=== PATIENT | male | born 1960 | race Two or more races ===

== ENCOUNTER 2022-07-12 08:29 | Emergency (ER) | payer MEDICARE, SELFPAY ==
--- NOTE | 2022-07-12 | ECG_ITS ---
Test Reason : syncope Blood Pressure : / mmHG Vent. Rate : 078 BPM Atrial Rate : 078 BPM P-R Int : 162 ms QRS Dur : 088 ms QT Int : 384 ms P-R-T Axes : 036 001 022 degrees QTc Int : 437 ms Normal sinus rhythm Normal ECG No previous ECGs available Referred By: Aly Beckwith Electronically Signed By:LUCHO JACOBS
--- NOTE | ~2022-07-12 | CT_ITS ---
EXAMINATION: CT ANGIOGRAM OF THE CHEST WITH AND WITHOUT CONTRAST (CT PULMONARY ANGIOGRAM FOR PE) CLINICAL INFORMATION: Syncope, rule out pulmonary embolism. COMPARISON: None TECHNIQUE: Prior to contrast administration, noncontrast localization images were obtained. Subsequently, multidetector volumetric imaging was performed from the thoracic inlet to below the diaphragms following the administration of 80 mL Omnipaque 350 intravenous contrast. No contrast reaction reported Sagittal, coronal, and MIP oblique sagittal reformatted images were obtained on the CT workstation, uploaded to PACS, and reviewed. This CT examination was performed using dose optimization techniques as appropriate, variously including the following: *Automated exposure control *Adjustment of mA and/or kV according to patient size (this includes techniques or standardized protocols for targeted exams where dose is matched to indication/reason for exam; i.e. extremities or head) *Use of iterative reconstruction technique Total exam dose-length product 332 mGy-cm FINDINGS: QUALITY OF STUDY/CONTRAST BOLUS: Satisfactory. PULMONARY ARTERIES: No central or segmental pulmonary emboli. THORACIC AORTA: No aneurysm or dissection. LUNGS/PLEURA/AIRWAYS: No focal consolidation, nodules or masses. MEDIASTINUM: The visualized thyroid gland is unremarkable. Normal heart size. No pericardial effusion. No hilar or mediastinal lymphadenopathy. No evidence of septal bowing or right heart strain. CHEST WALL/AXILLA: No axillary or internal mammary lymphadenopathy. OSSEOUS STRUCTURES: No acute or suspicious osseous abnormality. UPPER ABDOMEN: Partial visualization of right renal cyst demonstrating fluid attenuation and measuring 7.0 cm (image 59, series 5). Asymmetric atrophy of the visualized left kidney with mild pelviectasis versus peripelvic cysts. No reflux of contrast into the hepatic veins to suggest elevated right heart pressures. CT/CT angio chest PE protocol IMPRESSION: 1. No evidence for pulmonary embolism. 2. No acute cardiopulmonary process. VTE: Negative.
--- NOTE | ~2022-07-12 | CT_ITS ---
EXAMINATION: CT HEAD WITHOUT CONTRAST CLINICAL INFORMATION: Syncope and hit head COMPARISON: None TECHNIQUE: Contiguous axial imaging was performed from the skull base to vertex without intravenous administration of contrast. This CT examination was performed using dose optimization techniques as appropriate, variously including the following: *Automated exposure control *Adjustment of mA and/or kV according to patient size (this includes techniques or standardized protocols for targeted exams where dose is matched to indication/reason for exam; i.e. extremities or head) *Use of iterative reconstruction technique DLP: 1407 mGy-cm FINDINGS: There is no evidence of acute intracranial hemorrhage or territorial infarction. Focus of coarse calcification along the anterior falx measuring 0.6 cm, nonspecific though may represents a calcified meningioma. No abnormal mass effect or midline shift is seen. Goyal to white matter differentiation is well preserved. No extra-axial fluid collections are identified. The ventricles are normal in size. There is no abnormal attenuation within the brain parenchyma. The osseous structures and soft tissues are normal. The mastoid air cells and visualized portions of the paranasal sinuses are well aerated. CT/CT cervical spine wo IV con IMPRESSION: 1. No acute intracranial pathology. 2. Focus of coarse calcification along the anterior falx measuring 0.6 cm, nonspecific though may represents a calcified meningioma. EXAMINATION: Noncontrast CT scan of the cervical spine. INDICATION: Syncope and hit head COMPARISON: None. TECHNIQUE: Helical, multidetector axial images were obtained from the occiput to the upper thorax. Coronal and sagittal reformats of the cervical spine were provided for interpretation. DLP: 1407 mGy-cm FINDINGS: Mildly comminuted fracture involving the right base of C1 (series 4, image 102-113). Multilevel degenerative changes with disc space narrowing, endplate sclerosis, osteophyte formation, facet arthropathy, and mild ossification of the posterior longitudinal ligament. Anatomic alignment and positioning of the vertebral bodies and posterior elements is noted. The atlantoaxial joint and craniovertebral articulations are normal without evidence of subluxation. There is no prevertebral soft tissue swelling. The thyroid gland and visualized portions of the lung apices and mediastinum are unremarkable. IMPRESSION: 1. Mildly comminuted fracture involving the right base of C1 (series 4, image 102-113). 2. Multilevel degenerative changes. This critical result was discussed with ELIAN RENDON by telephone on 07/12/2022 12:39 PM and it was ascertained that the content and urgency of the report was understood at the time of direct communication.
[2022-07-12 08:36] VITALS: BP 101/49; BP 153/82; PULSE 62; PULSE 84; RESP 20; TEMP 36.9; O2SAT 95; O2SAT 97; BMI 31.5
[2022-07-12 08:41] LABS: Glucose, Whole Blood 153 mg/dL (60-115)
[2022-07-12 08:51] VITALS: BP 110/59
[2022-07-12] MEDS: 0.9 % Sodium Chloride 1,000 ML 999 ML IV ×2 (08:56→08:59)
[2022-07-12 09:50] LABS: MANUAL DIFF FLAG NO
[2022-07-12 09:51] LABS: Basophils Percent Auto 0.3 % (0-2); Eosinophils Percent Auto 0.1 % (0-4); Hematocrit 40.6 % (42.0-52.0); Hemoglobin 13.5 g/dl (14.0-18.0); Imm Gran Abs Auto 0.03 X10*3/uL (0.00-0.03); Imm Gran Pct Auto 0.4 % (0.0-0.4); Lymphocytes Absolute Auto 0.3 X10*3/uL (1.2-4.9); Lymphocytes Percent Auto 3.7 % (20-40); Mean Corpuscular HGB Conc 33.3 g/dl (31.0-36.0); Mean Corpuscular Hemoglobin 29.5 pg (27.0-33.0); Mean Corpuscular Volume 88.6 fL (80.0-98.0); Mean Platelet Volume 9.4 fL (9.4-12.4); Monocytes Absolute Auto 0.6 X10*3/uL (0.1-1.2); Monocytes Percent Auto 7.6 % (2-11); Neutrophils Absolute Auto 6.6 x10*3/uL (2.0-8.3); Neutrophils Percent Auto 87.9 % (45-73); Platelet Count 224 X10*3/uL (160-400); Red Blood Count 4.58 X10*6/uL (4.60-5.80); Red Cell Distribution Width 11.5 % (11.0-16.0); White Blood Count 7.5 X10*3/uL (4.8-10.8)
[2022-07-12 09:57] LABS: INTERNATIONAL NORM RATIO 1.1 (0.9-1.1); Prothrombin Time 12.1 SEC (10.0-13.1)
[2022-07-12 09:59] LABS: D Dimer High Sensitivity 489 NG/ML
[2022-07-12 10:00] LABS: Partial Thromboplastin Time 26.7 SEC (26.0-36.4)
--- NOTE | 2022-07-12 10:13 | ED_ITS ---
HPI - General Adult General Chief complaint: Syncope Stated complaint: SYNCOPAL EPISODE Time Seen by Provider: 07/12/22 08:45 Source: patient Mode of arrival: ambulatory Limitations: no limitations History of Present Illness HPI narrative: 62-year-old male with history of diabetes presents to the ED for syncopal ep isode. Patient states he was eating breakfast with his daughter and son-in-law and when he woke up he was on the floor. Patient did not have any symptoms before passing out. Patient states family denies him having any seizures or foaming while he was on the ground. Patient states he syncopized before in the past 3 years ago which was due to hypoglycemia. EMS checked his glucose which was 131. Patient presently asymptomatic. Related Data Allergies Allergy/AdvReac Type Severity Reaction Status Date / Time No Known Allergies Allergy Verified 07/12/22 08:50 Review of Systems Review of Systems: Syncopal episode Yes all other systems are reviewed and are negative PMFSH Social History Social History Alcohol intake: never Patient Tobacco Use Status: Never used Tobacco Use of substances other than those prescribed or required for medical reasons: No Advance Directives: No Advance Directives Information Provided: No Physical Exam ED Vital Signs: Vital Signs - 24 hr 07/12/22 08:36 07/12/22 08:51 Temperature 98.4 F Pulse Rate 84 Respiratory Rate 20 Blood Pressure 101/49 L 110/59 L Pulse Oximetry 97 Oxygen Delivery Method Room Air BMI result Body Mass Index 31.5 Const General: cooperative, healthy appearing, comfortable, no acute distress, well developed, alert, awake and Physically active Orientation/consciousness: oriented to time and patient oriented x3 HENMT Head: Yes normal to inspection, Yes No palpable skull fracture present, Yes normocephalic, Yes atraumatic and No abrasion Eyes General: appearance normal, both eyes and all related structures Neck Neck: Yes normal visual inspection, Yes full ROM, Yes no lymphadenopathy, Yes no meningeal signs, Yes trachea midline, Yes supple, No anterior neck swelling and No tender Chest Chest palpation & inspection: normal inspection of the chest and normal pal pation of entire chest wall Resp Effort & Inspection: normal respiratory effort and able to speak in complete sentences Auscultation: clear to auscultation bilaterally Cardio Jugular venous distension: no JVD Heart sounds: S1 normal heart sound present and S2 normal heart sound present GI Inspection: Yes normal to inspection and No abdominal wall ecchymosis Palpation (GI): Soft to palpation, not firm, nontender and no guarding General: No CVA tenderness and Yes no CVA tenderness Back/Spine/Pelvis Back: no CVA tenderness, No CVA tenderness and No back tenderness Skin General skin exam: no rashes or lesions noted, elasticity normal and turgor normal Neuro General: oriented to time, patient oriented x3, gait normal, no meningeal signs and CN's II-XI intact bilaterally Cranial nerves: Yes CN's II-XII intact bilaterally Extrem Other: Lower extremities negative for swelling, pitting edema, calf tenderness General: Yes normal to inspection and Yes full ROM Psych Appearance: grossly normal, well kempt and not disheveled Course Course Course Narrative: Patient blood pressure soft. Was ordered EKG cardiac evaluation. Fluids ordered. Head CT cervical spine CT. D-dimer will be added due to patient having syncopal episodes with soft blood pressure. Reevaluation(s) Reevaluation #1: Patient EKG negative STEMI. Patient 1st troponin negative. D-dimer was positive so patient was sent for a chest CTA to rule out PE. Chest CTA negative for PE. Patient walk around with normal gait. Blood pressure improved after [address] L of fluid. Chest CT scan normal for brain bleed. Cervical spine CT scan positive for C1 fracture at the base. Patient immediately placed in cervical collar. Neuro exam intact after cervical collar placed. Will contact [facility] Time: 12:39 Reevaluation #2: Spoke with Dr. Chau of [facility] trauma recommends patient be transferred to [facility] ER for evaluation by trauma team. Present L patient is stable with normal vital signs. Patient agreeable for transfer Time: 13:04 Reevaluation #3: atient: Avi Doe MR#: [id number] : 1960 Acct:[id number] Age/Sex: 62 / M ADM Date: 07/12/22 Loc: HO.ED Attending Dr: Ordering Physician: Elian Beckwith Date of Service: 07/12/22 Procedure(s): CT head/brain wo IV con Accession Number(s): [id number] cc: Elian Beckwith~ EXAMINATION: CT HEAD WITHOUT CONTRAST CLINICAL INFORMATION: Syncope and hit head? COMPARISON: None TECHNIQUE: Contiguous axial imaging was performed from the skull base to vertex without intravenous administration of contrast. This CT examination was performed using dose optimization techniques as appropriate, variously including the following: *Automated exposure control *Adjustment of mA and/or kV according to patient size (this includes techniques or standardized protocols for targeted exams where dose is matched to indication/reason for exam; i.e. extremities or head) *Use of iterative reconstruction technique DLP: 1407 mGy-cm FINDINGS: There is no evidence of acute intracranial hemorrhage or territorial infarction. Focus of coarse calcification along the anterior falx measuring 0.6 cm, nonspecific though may represents a calcified meningioma. No abnormal mass effect or midline shift is seen. Goyal to white matter differentiation is well preserved. No extra-axial fluid collections are identified. The ventricles are normal in size. There is no abnormal attenuation within the brain parenchyma. The osseous structures and soft tissues are normal. The mastoid air cells and visualized portions of the paranasal sinuses are well aerated. ? CT/CT head/brain wo IV con IMPRESSION: 1.? No acute intracranial pathology. 2.? Focus of coarse calcification along the anterior falx measuring 0.6 cm, nonspecific though may represents a calcified meningioma. ? ? EXAMINATION: Noncontrast CT scan of the cervical spine. ? INDICATION: Syncope and hit head ? COMPARISON: None. ? TECHNIQUE:? Helical, multidetector axial images were obtained from the occiput to the upper thorax. Coronal and sagittal reformats of the cervical spine were provided for interpretation. ? DLP: 1407 mGy-cm ? FINDINGS: Mildly comminuted fracture involving the right base of C1 (series 4, image 102-113). Multilevel degenerative changes with disc space narrowing, endplate sclerosis, osteophyte formation, facet arthropathy, and mild ossification of the posterior longitudinal ligament. Anatomic alignment and positioning of the vertebral bodies and posterior elements is noted. The atlantoaxial joint and craniovertebral articulations are normal without evidence of subluxation. There is no prevertebral soft tissue swelling. ? The thyroid gland and visualized portions of the lung apices and mediastinum are unremarkable. ? IMPRESSION: 1.? Mildly comminuted fracture involving the right base of C1 (series 4, image 102-113). 2.? Multilevel degenerative changes. ? This critical result was discussed with ELIAN BECKWITH by telephone on 07/12/2022 12:39 PM and it was ascertained that the content and urgency of the report was understood at the time of direct communication. Dictated By: Christina Pang MD Signed By: <Electronically signed by Christina Pang MD in OV> 07/12/22 1239 DD/ 1105 TD/TT:? Operating Room Scheduler: [address] [address] [address] Scan Report Signed Patient: Avi Doe JR MR#: [id number] : 1960 Acct:[id number] Age/Sex: 62 / M ADM Date: 07/12/22 Loc: .ED Attending Dr: Ordering Physician: Elian Beckwith Date of Service: 07/12/22 Procedure(s): CT angio chest PE protocol Accession Number(s): [id number] cc: Elian Beckwith~ EXAMINATION: CT ANGIOGRAM OF THE CHEST WITH AND WITHOUT CONTRAST (CT PULMONARY ANGIOGRAM FOR PE) CLINICAL INFORMATION: Syncope, rule out pulmonary embolism. COMPARISON: None? TECHNIQUE: Prior to contrast administration, noncontrast localization images were obtained. ? Subsequently, multidetector volumetric imaging was performed from the thoracic inlet to below the diaphragms following the administration of 80 mL Omnipaque 350 intravenous contrast. No contrast reaction reported Sagittal, coronal, and MIP oblique sagittal reformatted images were obtained on the CT workstation, uploaded to PACS, and reviewed. This CT examination was performed using dose optimization techniques as appropriate, variously including the following: *Automated exposure control *Adjustment of mA and/or kV according to patient size (this includes techniques or standardized protocols for targeted exams where dose is matched to indication/reason for exam; i.e. extremities or head) *Use of iterative reconstruction technique Total exam dose-length product 332 mGy-cm FINDINGS: QUALITY OF STUDY/CONTRAST BOLUS: Satisfactory. PULMONARY ARTERIES: No central or segmental pulmonary emboli.? THORACIC AORTA: No aneurysm or dissection. LUNGS/PLEURA/AIRWAYS: No focal consolidation, nodules or masses. MEDIASTINUM: The visualized thyroid gland is unremarkable. Normal heart size.? No pericardial effusion.? No hilar or mediastinal lymphadenopathy.? No evidence of septal bowing or right heart strain. CHEST WALL/AXILLA: No axillary or internal mammary lymphadenopathy. OSSEOUS STRUCTURES: No acute or suspicious osseous abnormality.? UPPER ABDOMEN: Partial visualization of right renal cyst demonstrating fluid attenuation and measuring 7.0 cm (image 59, series 5). Asymmetric atrophy of the visualized left kidney with mild pelviectasis versus peripelvic cysts.? No reflux of contrast into the hepatic veins to suggest elevated right heart pressures. CT/CT angio chest PE protocol IMPRESSION: ? 1. No evidence for pulmonary embolism. 2. No acute cardiopulmonary process. ? VTE: Negative. Dictated By: Rubens Haley MD Signed By: <Electronically signed by Rubens Haley MD in OV> 07/12/22 1238 Time: 13:05 Medical Decision Making MDM Narrative Medical decision making narrative: Cervical spine fracture Lab Data Result diagrams: 07/12/22 09:44 07/12/22 09:44 Labs: Lab Results 07/12/22 07/12/22 07/12/22 Range/Units 08:37 09:44 09:44 WBC 7.5 (4.8-10.8) X10*3/uL RBC 4.58 L (4.60-5.80) X10*6/uL Hgb 13.5 L (14.0-18.0) g/dl Hct 40.6 L (42.0-52.0) % MCV 88.6 (80.0-98.0) fL MCH 29.5 (27.0-33.0) pg MCHC 33.3 (31.0-36.0) g/dl RDW 11.5 (11.0-16.0) % Plt Count 224 (160-400) X10*3/uL MPV 9.4 (9.4-12.4) fL Immature Gran % (Auto) 0.4 (0.0-0.4) % Neut % (Auto) 87.9 H (45-73) % Lymph % (Auto) 3.7 L (20-40) % [place] % (Auto) 7.6 (2-11) % Eos % (Auto) 0.1 (0-4) % Baso % (Auto) 0.3 (0-2) % Lymph # (Auto) 0.3 L (1.2-4.9) X10*3/uL [place] # (Auto) 0.6 (0.1-1.2) X10*3/uL Eos # (Auto) 0.0 (0.0-0.4) X10*3/uL Baso # (Auto) 0.0 (0.0-0.2) X10*3/uL Abs Immat Gran (auto) 0.03 (0.00-0.03) X10*3/uL Absolute Neuts (auto) 6.6 (2.0-8.3) x10*3/uL Absolute Nucleated RBC 0.000 (0.0-0.012) X10*3/uL Nucleated RBC % (auto) 0.0 (0.0-0.2) /100WBC PT 12.1 (10.0-13.1) SEC INR 1.1 (0.9-1.1) APTT 26.7 (26.0-36.4) SEC D-Dimer High Sensitivty 489 NG/ML Sodium (135-145) mmol/L Potassium (3.3-5.1) mmol/L Chloride (96-108) mmol/L Carbon Dioxide (22-29) mmol/L Anion Gap (12-20) BUN (9-16) mg/dL Creatinine (0.5-1.4) mg/dL Estim Creat Clear Calc Estimated GFR POC Glucose 153 H (60-115) mg/dL Random Glucose (60-115) mg/dL Calcium (8.4-10.2) mg/dL Total Bilirubin (0.0-1.0) mg/dL AST (5-37) U/L ALT (0-40) U/L Alkaline Phosphatase (39-117) U/L Troponin I High Sens (<3.5-35.0) ng/L B-Natriuretic Peptide (<100) pg/mL Total Protein (6.5-8.0) g/dL Albumin (3.5-5.0) g/dL COVID-19 (ANAHI) (Negative) COVID-19 Clin Com 07/12/22 07/12/22 07/12/22 Range/Units 09:44 09:44 09:44 WBC (4.8-10.8) X10*3/uL RBC (4.60-5.80) X10*6/uL Hgb (14.0-18.0) g/dl Hct (42.0-52.0) % MCV (80.0-98.0) fL MCH (27.0-33.0) pg MCHC (31.0-36.0) g/dl RDW (11.0-16.0) % Plt Count (160-400) X10*3/uL MPV (9.4-12.4) fL Immature Gran % (Auto) (0.0-0.4) % Neut % (Auto) (45-73) % Lymph % (Auto) (20-40) % [place] % (Auto) (2-11) % Eos % (Auto) (0-4) % Baso % (Auto) (0-2) % Lymph # (Auto) (1.2-4.9) X10*3/uL [place] # (Auto) (0.1-1.2) X10*3/uL Eos # (Auto) (0.0-0.4) X10*3/uL Baso # (Auto) (0.0-0.2) X10*3/uL Abs Immat Gran (auto) (0.00-0.03) X10*3/uL Absolute Neuts (auto) (2.0-8.3) x10*3/uL Absolute Nucleated RBC (0.0-0.012) X10*3/uL Nucleated RBC % (auto) (0.0-0.2) /100WBC PT (10.0-13.1) SEC INR (0.9-1.1) APTT (26.0-36.4) SEC D-Dimer High Sensitivty NG/ML Sodium 139 (135-145) mmol/L Potassium 4.7 (3.3-5.1) mmol/L Chloride 105 (96-108) mmol/L Carbon Dioxide 27 (22-29) mmol/L Anion Gap 12 (12-20) BUN 18 H (9-16) mg/dL Creatinine 1.00 (0.5-1.4) mg/dL Estim Creat Clear Calc 90.9 Estimated GFR > 60 POC Glucose (60-115) mg/dL Random Glucose 134 H (60-115) mg/dL Calcium 8.8 (8.4-10.2) mg/dL Total Bilirubin 0.3 (0.0-1.0) mg/dL AST 22 (5-37) U/L ALT 29 (0-40) U/L Alkaline Phosphatase 66 (39-117) U/L Troponin I High Sens < 3.5 (<3.5-35.0) ng/L B-Natriuretic Peptide 29 (<100) pg/mL Total Protein 6.4 L (6.5-8.0) g/dL Albumin 4.1 (3.5-5.0) g/dL COVID-19 (ANAHI) (Negative) COVID-19 Clin Com 07/12/22 07/12/22 Range/Units 12:33 12:57 WBC (4.8-10.8) X10*3/uL RBC (4.60-5.80) X10*6/uL Hgb (14.0-18.0) g/dl Hct (42.0-52.0) % MCV (80.0-98.0) fL MCH (27.0-33.0) pg MCHC (31.0-36.0) g/dl RDW (11.0-16.0) % Plt Count (160-400) X10*3/uL MPV (9.4-12.4) fL Immature Gran % (Auto) (0.0-0.4) % Neut % (Auto) (45-73) % Lymph % (Auto) (20-40) % [place] % (Auto) (2-11) % Eos % (Auto) (0-4) % Baso % (Auto) (0-2) % Lymph # (Auto) (1.2-4.9) X10*3/uL [place] # (Auto) (0.1-1.2) X10*3/uL Eos # (Auto) (0.0-0.4) X10*3/uL Baso # (Auto) (0.0-0.2) X10*3/uL Abs Immat Gran (auto) (0.00-0.03) X10*3/uL Absolute Neuts (auto) (2.0-8.3) x10*3/uL Absolute Nucleated RBC (0.0-0.012) X10*3/uL Nucleated RBC % (auto) (0.0-0.2) /100WBC PT (10.0-13.1) SEC INR (0.9-1.1) APTT (26.0-36.4) SEC D-Dimer High Sensitivty NG/ML Sodium (135-145) mmol/L Potassium (3.3-5.1) mmol/L Chloride (96-108) mmol/L Carbon Dioxide (22-29) mmol/L Anion Gap (12-20) BUN (9-16) mg/dL Creatinine (0.5-1.4) mg/dL Estim Creat Clear Calc Estimated GFR POC Glucose (60-115) mg/dL Random Glucose (60-115) mg/dL Calcium (8.4-10.2) mg/dL Total Bilirubin (0.0-1.0) mg/dL AST (5-37) U/L ALT (0-40) U/L Alkaline Phosphatase (39-117) U/L Troponin I High Sens < 3.5 (<3.5-35.0) ng/L B-Natriuretic Peptide (<100) pg/mL Total Protein (6.5-8.0) g/dL Albumin (3.5-5.0) g/dL COVID-19 (ANAHI) Positive A (Negative) COVID-19 Clin Com See Note ECG Data Interpretation: Normal sinus rhythm. Ventricular rate 78. MO interval 162. QRS 88. QTC 437. Negative STEMI Discharge Plan Discharge Clinical Impression: Cervical spine fracture Patient Disposition: [facility] Hospital Transfer Details: [facility]
[2022-07-12 10:15] LABS: Alanine Aminotransferase 29 U/L (0-40); Albumin Level 4.1 g/dL (3.5-5.0); Alkaline Phosphatase 66 U/L (39-117); Anion Gap 12 (12-20); Aspartate Amino Transferase 22 U/L (5-37); Bilirubin Total 0.3 mg/dL (0.0-1.0); Blood Urea Nitrogen 18 mg/dL (9-16); Calcium 8.8 mg/dL (8.4-10.2); Carbon Dioxide 27 mmol/L (22-29); Chloride 105 mmol/L (96-108); Creatinine Clr Calc Pharmacy 90.9; Estimated Glomerular Filt Rate > 60; Glucose Random 134 mg/dL (60-115); Potassium 4.7 mmol/L (3.3-5.1); Sodium 139 mmol/L (135-145); Total Protein 6.4 g/dL (6.5-8.0); Troponin-I High Sensitivity < 3.5 ng/L (<3.5-35.0)
[2022-07-12 10:16] LABS: B Type Natriuretic Peptide 29 pg/mL (<100)
[2022-07-12] MEDS: iohexoL 350 MG/ML 100 ML INFUS..BTL IV (11:05)
[2022-07-12 12:58] LABS: Troponin-I High Sensitivity < 3.5 ng/L (<3.5-35.0)
[2022-07-12 13:12] LABS: COVID-19 Test Positive (Negative); IDNOW Serial# 16C4AD1C
== END 2022-07-12 15:08 | disposition short-term general hospital (02) ==
PROVIDERS: Physician Assistant; Emergency Provider Emergency Medicine
DX: R55 Syncope and collapse (principal); R51.9 Headache, unspecified; M54.2 Cervicalgia; R06.02 Shortness of breath; Z20.822 Contact with and (suspected) exposure to COVID-19; Z79.899 Other long term (current) drug therapy
CPT/HCPCS: 36415; 70450; 71275; 72125; 80053; 82947; 83880; 84484; 85025; 85379; 85610; 85730; 87635; 93005; 96360; 96361; 99285; Q9967

== ENCOUNTER 2024-05-08 18:14 | Emergency (ER) | payer MEDICARE, SELFPAY ==
--- NOTE | ~2024-05-08 | XR_ITS ---
EXAMINATION: XR KNEE, LEFT CLINICAL INFORMATION: Fall with knee swelling COMPARISON: None available. TECHNIQUE: Four views of the left knee. FINDINGS: Degenerative changes are present in the knees with mild narrowing of all compartments most marked medially. Chondrocalcinosis is seen with calcification in both the medial and lateral menisci. A small knee joint effusion is seen. No fracture or dislocation. XR/XR knee LT 3V IMPRESSION: Degenerative changes with chondrocalcinosis and small knee joint effusion. No fracture.
[2024-05-08 18:36] VITALS: BP 134/63; PULSE 62; RESP 16; TEMP 36.2; O2SAT 98; BMI 33.6
--- NOTE | 2024-05-08 18:36 | ED_ITS ---
HPI - Extremity Injury (Lower) General Chief Complaint: Extremity Injury, Lower Stated Complaint: Left leg swelling/injury Time Seen by Provider: 05/08/24 22:17 Source: patient Mode of arrival: ambulatory Limitations: no limitations History of Present Illness ED Provider: Aly Beckwith PA-C HPI Narrative: 63 yold male with pmh of arthritis, right knee surgery, and Diabetes presents to the ED left knee pain. States on monday his right knee gave out which caused him to awkwardly turn his left knee. Patient was trying to catch his balance so he would not fall. Patient states some swelling without any redness, fever, chills, calf pain, chest pain, or shortness of breath. Related Data Previous Rx's ?Medication ?Instructions ?Recorded naproxen 500 mg tablet 500 mg PO BID PRN pain 7 days #14 05/08/24 tabs prednisone 20 mg tablet 40 mg (2 x 20 mg) PO DAILY 5 days 05/08/24 #10 tabs Allergies Allergy/AdvReac Type Severity Reaction Status Date / Time Penicillins Allergy Anaphylaxis Verified 05/08/24 18:39 Review of Systems 2 Review of Systems: left knee pain Yes all other systems are reviewed and are negative [facility] Social History Social History Alcohol intake: never Patient Tobacco Use Status: Never used Tobacco Smoked in Last 30 Days: No Use of substances other than those prescribed or required for medical reasons: No Advance Directives: No Advance Directives Information Provided: No Do you have a plan to hurt others: No Plan Physical Exam 2 Vital Signs: Vital Signs: Last Vital Signs Temp 97.6 F 05/08/24 21:29 Pulse 56 05/08/24 21:29 Resp 16 05/08/24 21:29 BP 132/70 05/08/24 21:29 Pulse Ox 99 05/08/24 21:29 O2 Del Method Room Air 05/08/24 21:29 BMI result Body Mass Index 33.6 Const: General: cooperative, healthy appearing, comfortable, no acute distress, well developed, alert, awake and Physically active O rientation/consciousness: patient oriented x3 HEENT: Head: Yes normal to inspection, Yes No palpable skull fracture present, Yes normocephalic, Yes atraumatic and No abrasion Eyes: General: appearance normal, both eyes and all related structures Neck: Neck: Yes normal visual inspection, Yes full ROM, Yes no lymphadenopathy, Yes no meningeal signs, Yes trachea midline, Yes supple, No anterior neck swelling and No tender Chest: Chest palpation & inspection: normal inspection of the chest and normal palpation of entire chest wall Resp: Effort & Inspection: normal respiratory effort and able to speak in complete sentences Auscultation: clear to auscultation bilaterally Cardio: Jugular venous distension: no JVD Heart sounds: S1 normal heart sound present and S2 normal heart sound present GI: Inspection: Yes normal to inspection Palpation (GI): Soft to palpation, not firm, nontender, no guarding and not rigid : General: Yes no CVA tenderness Back/Spine/Pelvis: Back: no CVA tenderness and No back tenderness Skin: General skin exam: no rashes or lesions noted, elasticity normal and turgor normal Neuro: General: patient oriented x3, gait normal, tone normal, moves all extremities, Normal light touch and pain sensation, no meningeal signs, no focal motor deficits, CN's II-XI intact bilaterally and normal sensation to monofilament Extrem: General: Yes normal to inspection, Yes full ROM and Yes capillary refill normal Knee images: 1. Positive for tenderness on palpation. Negative for erythema, warmth, ecchymosis, stiffness, deformity, crepitus, hotness, or coldness. Rest of extremity normal. Motor/neuro/vascular exam intact. 2. Positive for tenderness on palpation. Negative for erythema, warmth, ecchymosis, stiffness, deformity, crepitus, hotness, or coldness. Rest of extremity normal. Motor/neuro/vascular exam intact. Psych: Appearance: grossly normal, well kempt and not disheveled Course Course Course Narrative: This is a rapid medical exam performed by Simone Hamilton NP: Additional HPI, ROS, PE not included below will be deferred to primary provider. Patient is a 63-year-old male presenting to emergency department with complaint of left knee pain and swelling for the past few days. He states he was ambulating when his right knee gave out, causing him to fall onto his left knee. Plan: xray Medications Administered Discontinued Medications Generic Name Dose Route Start Last Admin Trade Name Freq PRN Reason Stop Dose Admin Ibuprofen 800 mg 05/08/24 23:10 05/08/24 23:32 Ibuprofen 800 Mg Tablet PO 05/08/24 23:11 800 mg ONCE ONE Administration Prednisone 40 mg 05/08/24 23:10 05/08/24 23:32 Prednisone 20 Mg Tablet PO 05/08/24 23:11 40 mg ONCE ONE Administration Medical Decision Making Medical Decision Making MDM Narrative: 63-year-old male presents to ED for left knee pain after trying to break his fall and twisting his left knee. Patient denies any stiffness, fever, chills, or redness. Physical exam does not indicate septic joint, gout, DVT, arterial occlusion, or compartment syndrome. Patient given Motrin and prednisone. Patient is placed in Pepe wrap. X-ray showed arthritis with small joint effusion. Patient informed maybe due to arthritis of swelling but also recommend MRI make sure there is no ligament injury pain continues. Patient is playing worrisome signs and informed to return to the ED immediately Differential Diagnosis Differential Diagnoses: The differential diagnosis associated with the presentation includes (Dislocation, fracture, sprain, septic joint, gout, DVT) Admission/Observation Consideration of admission/observation: Escalation of care including admission/observation considered Independent Interpretation I performed an independent interpretation of an: Plain X-Ray Radiology Impression Discussion of test interpretation with radiology: I have reviewed the radiologist's reading. Independent Historian Clinical information obtained from an independent historian. History obtained from or confirmed by: Other (Patient) External Record Review External record reviewed: Other (Prior visits) Prescription Management I considered prescription management with: Pain Medication Discharge Plan Discharge Clinical Impression: Sprain of knee, Osteoarthritis Patient Disposition: Home, Self-Care Instructions: Knee Sprain (ED), Crutch Instructions (ED), R.I.C.E. Treatment (ED) Additional Instructions: Recommend follow-up with orthopedic and primary care provider. If no improvement in pain you may need MRI and referral to physical therapy. Return to the ED immediately for any knee pain worsening, swelling, redness, stiffness, bluish black discoloration, calf pain, chest pain, shortness of breath, fever, or chills. XR/XR knee LT 3V IMPRESSION: Degenerative changes with chondrocalcinosis and small knee joint effusion. No fracture. Prescriptions: New naproxen 500 mg tablet 500 mg PO BID PRN (Reason: pain) 7 Days Qty: 14 0RF prednisone 20 mg tablet 40 mg PO DAILY 5 Days Qty: 10 0RF Ref[place]: [facility] [place] Group] (Knee swelling after awkward movement. May need MRI. X-ray shows small joint effusion and degenerative arthritis) Stand Alone Forms: Work/School Release Discharge Date/Time: 05/08/24 23:51 Print Language: Sami
[2024-05-08 21:29] VITALS: BP 132/70; PULSE 56; RESP 16; TEMP 36.4; O2SAT 99
--- NOTE | 2024-05-08 22:48 | PC.NURSE ---
Pt continues to await provider eval, standing in doorway questioning when MD will be in. Provider notified.
[2024-05-08] MEDS: predniSONE 20 MG TABLET 40 MG PO (23:32)
[2024-05-08] MEDS: Ibuprofen 800 MG TABLET PO (23:32)
== END 2024-05-08 23:51 | disposition home or self-care (01) ==
PROVIDERS: Emergency Provider Internal Medicine
DX: S83.92XA Sprain of unspecified site of left knee, initial encounter (principal); X50.1XXA Overexertion from prolonged static or awkward postures, initial encounter; M17.12 Unilateral primary osteoarthritis, left knee; Y93.89 Activity, other specified; Y92.9 Unspecified place or not applicable; Y99.9 Unspecified external cause status
CPT/HCPCS: 73562; 99283; 99284